=== PATIENT | female | born 1945 | race Asian ===

== ENCOUNTER → 2016-07-17 | Outpatient (CLI) | payer MEDICARE, OTHER ==
[~2016-07-17] MED LIST: ASPIRIN PO; ATENOLOL; ATENOLOL PO; GLUCOTROL XL; LIPITOR; LIPITOR PO; MYLANTA400 MG PO; PRILOSEC PO
--- NOTE | ~2016-07-17 | CR181 ---
[facility] A Service of [facility] & [facility] [place] RADIOLOGY TEXT RESULTS PATIENT: SIMEON OCAMPO LOCATION: [facility] : 45 UNIT #: [id number] AGE: [address]: ERIN WYMAN APRN SEX: F ORDER DR: [id number] [facility] [address] [place], [place] [address] [id number] O MR#: [id number] Acc #: [id number] NAME: SIMEON OCAMPO : 1945 SEX: F STUDY DATE/TIME: 07/17/2016 13:38 UNIT: [facility] ROOM: STUDY DESCRIPTION: CR Lumbar Spine 2 or 3 Views Attending Physician: Erin Wyman Referring Physician: Erin Wyman Ordering Physician: Erin Wyman Aprn Primary Care Physician: Erin Wyman MEDICAL IMAGING REPORT This report is preliminary unless electronic signature is present EXAM 3 views lumbar spine. DATE 07/17/2016 HISTORY Physician's order states back pain. Patient states chronic back pain radiating to both legs, back surgery 6 years ago. Degenerative disc disease. The patient states symptoms began 5 years ago. COMPARISON Lumbar spine radiographs 03/18/2012. MRI of the lumbar spine 06/09/2015. FINDINGS No acute lumbar spine fracture or subluxation is seen. There is advanced loss of disc height at L3-4 with endplate sclerosis and vacuum disc phenomenon and anterior osteophyte formation which is new since the 03/18/2012 examination, but probably not significantly changed when compared to the MRI of the lumbar spine from 06/09/2015. Advanced degenerative loss of disc height at L4-5 with endplate sclerosis, unchanged from the 2013 plain film. No acute lumbar spine fracture is seen. Facet arthropathy is thought to be present at multiple lumbar levels, thought to be greatest at L3-4. No sacroiliac joint diastasis is seen. Features of laminectomy at L4-5 and L5-S1 are depicted at a better advantage on the lumbar spine MRI from 06/09/2015. IMPRESSION 1. Significant diminished disc height at L3-4 with endplate sclerosis and anterior osteophyte formation which has developed since the 2012 plain film but is probably not significant change compared to the MRI STS. [facility] A Service of [facility] & [facility] RADIOLOGY TEXT RESULTS PATIENT: SIME[facility] OCAMPO [id number] : [birth year] UNIT #: [id number] AGE: [address]: ERIN WYMAN APRN SEX: F ORDER DR: lumbar spine from 06/09/2015. 2. Stable advanced loss of disc height at L4-5 compared to 2013. 3. No acute lumbar spine fracture or subluxation. 4. Lower lumbar facet arthropathy. 5. Previously described L4-5 and L5-S1 laminectomy changes are demonstrated at a better advantage on previous MRI. Dictated by... Lillian Jones M.D. THIS IS AN ELECTRONICALLY VERIFIED REPORT Lillian Jones M.D. at 07/20/2016 8:31 AM [facility]/lisy TD: 07/17/2016 19:59 JOB #: [id number] MEDICAL IMAGING REPORT Page 1 of 1 COPY
== END | disposition home or self-care (01) ==
LOC: CRAD 13:22
DX: M54.9 Dorsalgia, unspecified (principal); G95.89 Other specified diseases of spinal cord; M25.78 Osteophyte, vertebrae; M46.96 Unspecified inflammatory spondylopathy, lumbar region; Z98.890 Other specified postprocedural states
CPT/HCPCS: 72100